=== PATIENT | male | born 1930 ===

== ENCOUNTER 2017-07-30 09:58 | Emergency (ER) | payer MEDICARE, OTHER ==
[2017-07-30 11:05] LABS: ADD MAN DIFF? NO
[2017-07-30 11:08] LABS: BASO # 0.1 x10^3/uL (0.0-0.2); BASO % 1 % (0-3); EOS # 0.1 x10^3/uL (0.0-0.7); EOS % 1 % (0-3); HEMATOCRIT 33.6 % (39.0-53.0); HEMOGLOBIN 11.6 g/dL (13.0-17.5); LYMPH # 1.1 x10^3/uL (1.0-4.8); LYMPH % 13 % (24-48); MEAN CORPUSCULAR HEMOGLOBIN 36 pg (25-35); MEAN CORPUSCULAR HGB CONC 35 g/dL (31-37); MEAN CORPUSCULAR VOLUME 105 fL (79-100); MONO # 1.4 x10^3/uL (0.0-1.1); MONO % 16 % (0-9); NEUT # 6.3 x10^3uL (1.8-7.7); NEUT % 70 % (31-73); PLATELET COUNT 201 x10^3/uL (140-400); RED CELL DISTRIBUTION WIDTH 14.1 % (11.5-14.5); WHITE BLOOD COUNT 9.1 x10^3/uL (4.0-11.0)
[2017-07-30 11:16] LABS: INR 1.1 (0.8-1.1)
[2017-07-30 11:22] LABS: ANION GAP 10 (6-14); BLOOD UREA NITROGEN 31 mg/dL (8-26); BUN/CREATININE RATIO 5 (6-20); CALCIUM 9.3 mg/dL (8.5-10.1); CARBON DIOXIDE 29 mmol/L (21-32); CHLORIDE 100 mmol/L (98-107); CREATININE 6.1 mg/dL (0.7-1.3); GFR 8.8; GLUCOSE 147 mg/dL (70-99); POTASSIUM 4.2 mmol/L (3.5-5.1); SODIUM 139 mmol/L (136-145)
[2017-07-30 11:28] LABS: ALBUMIN 3.4 g/dL (3.4-5.0); ALBUMIN/GLOBULIN RATIO 1.1 (1.0-1.7); ALK PHOS 95 U/L (46-116); ALT (SGPT) 15 U/L (16-63); AST (SGOT) 8 U/L (15-37); MAGNESIUM 2.3 mg/dL (1.8-2.4); TOTAL BILIRUBIN 0.7 mg/dL (0.2-1.0); TOTAL PROTEIN 6.6 g/dL (6.4-8.2)
[2017-07-30 11:31] LABS: LACTIC ACID 1.6 mmol/L (0.4-2.0); TROPONINI < 0.017 ng/mL (0.000-0.055)
[2017-07-30] MEDS: DOXYCYCLINE HYCLATE 100 MG TABLET PO (12:34)
== END 2017-07-30 12:40 | disposition home or self-care (01) ==
LOC: ER 09:58
DX: M54.89 Other dorsalgia (principal); J18.9 Pneumonia, unspecified organism; G89.29 Other chronic pain; R41.82 Altered mental status, unspecified; I12.9 Hypertensive chronic kidney disease with stage 1 through stage 4 chronic kidney disease, or unspecified chronic kidney disease; N18.9 Chronic kidney disease, unspecified; Z88.5 Allergy status to narcotic agent; Z88.8 Allergy status to other drugs, medicaments and biological substances
CPT/HCPCS: 36415; 71045; 80053; 83605; 83735; 84484; 85025; 85610; 87040; 93005; 99285-25

== ENCOUNTER 2017-11-22 11:01 | Emergency (ER) | payer MEDICARE, OTHER ==
[~2017-11-22] VITALS: Ht 182.9 cm; Wt 83.0 kg
[~2017-11-22 11:01] MED LIST: ASCO500C PO; ASPI-482 PO; BUME2TAB PO; CLOB15CR2 TP; CYAN500L2 PO; DIPH25CA58 PO; DOXY100T PO; ERGO500027 PO; HYDR-2869 PO; HYDR-971 PO; HYDR100T24 PO; HYDR25CA PO; INSU100I13 SQ; INSU100I17 SQ; MELA1TAB13 PO; MULT-246 PO; OXYC-323 PO; PRED-220 PO; PRED20TA PO; PRED5TAB PO; PRIM50TA PO; PROP60TA PO; PYRI100T PO; TRAZ-85 PO; VANC1.752 IV; VIT1TABL57 PO; WARF7.5T48 PO; ZOLP5TAB PO
--- NOTE | 2017-11-22 11:25 | PHYS DOC ---
Past Medical History Past Medical History: Alcoholism, Anemia, CHF, Dementia, Diabetes-Type II, GERD , Hypertension, [place], Renal Failure, Other Additional Past Medical Histor: CONSTIPATION,DIALYSIS,DYSPHAGIA,PROSTATE CA, HYPOXIA,ENCEPHALOPATHY Past Surgical History: Other Additional Past Surgical Histo: UNKNOWN Alcohol Use: Sober Drug Use: None Adult General HPI HPI Patient is a 87 year old male who presents via EMS for evaluation after falling out of a wheelchair. Per EMS and patient report as the wheelchair was being spun around the patient fell out through the front. Patient was at dialysis and completed his dialysis. Patient injured his left upper extremity by scraping it on the wheelchair. Patient denies any pain or any medical complaints and is wishing discharge so he can go home and chew tobacco. Patient is alert to self and place only at baseline. Patient resides at [facility]. No head trauma. Review of Systems Review of Systems Review of systems Limited secondary to dementia. Allergies Allergies Allergies Coded Allergies Type Severity Reaction Last Updated Verified furosemide Allergy Severe bullous pemphigus 05/27/15 Yes gabapentin Allergy Severe Swelling 05/27/15 No diphenhydramine Adverse Reaction Intermediate 05/27/15 Yes Physical Exam Physical Exam Constitutional: Frail, appears stated age, chronically ill-appearing. HENT: Normocephalic, atraumatic, Eyes: PERRLA, EOMI, Neck: no stridor. []No midline spinal tenderness. Cardiovascular:Heart rate regular rhythm, no murmur [] Lungs & Thorax: Bilateral breath sounds clear to auscultation [] Abdomen: Bowel sounds normal, soft, no tenderness, no masses, no pulsatile masses. [] Skin: Periodic ecchymoses. Small 3 cm linear skin tear to left ventral forearm. Extremities: No tenderness, diffusely weak in all 4 extremities at 4 out of 5, skin tear as above, bilateral public health service officer strength equal and bilateral 5. Bilateral radial and DP pulses +2 out of 4. Neurologic: Alert and oriented X 2, no focal deficits noted. [] Psychologic: Affect normal, judgement normal, mood normal. [] EKG EKG [] Radiology/Procedures Radiology/Procedures [] Course & Med Decision Making Course & Med Decision Making Pertinent Labs and Imaging studies reviewed. (See chart for details) []History presenting with very low mechanism injury with skin tear to left forearm. This is not amenable to repair. Wound was cleaned and dressed. Tetanus updated. [facility]. Dragon Disclaimer Dragon Disclaimer This electronic medical record was generated, in whole or in part, using a voice recognition dictation system. Departure Departure Impression: Primary Impression: Skin tear Disposition: 01 HOME, SELF-CARE Condition: STABLE Referrals: ORA AYALA MD (PCP) Patient Instructions: Skin Tear Care, [id number] Additional Instructions: Thank you for coming to [facility]. Please repeat the attached handouts. Please follow-up with your primary care physician. Return to the ER if your symptoms worsen or you have any other concerns. JOYA CARL DO Nov 22, 2017 11:25
[2017-11-22] MEDS ORDERED: DIPHTH,PERTUSS(ACELL),TET TOX 0.5 ML DISP.SYRIN. VAX IM ONE (11:30)
[2017-11-22 12:00] VITALS: BP 154/59
== END 2017-11-22 12:25 | disposition home or self-care (01) ==
LOC: ER 11:01
DX: S51.812A Laceration without foreign body of left forearm, initial encounter (principal); K21.9 Gastro-esophageal reflux disease without esophagitis; E11.9 Type 2 diabetes mellitus without complications; I13.0 Hypertensive heart and chronic kidney disease with heart failure and stage 1 through stage 4 chronic kidney disease, or unspecified chronic kidney disease; I50.9 Heart failure, unspecified; Z99.2 Dependence on renal dialysis; Z88.8 Allergy status to other drugs, medicaments and biological substances; W05.0XXA Fall from non-moving wheelchair, initial encounter; Y93.89 Activity, other specified; Y92.89 Other specified places as the place of occurrence of the external cause; Y99.8 Other external cause status
CPT/HCPCS: 90471; 90715; 99284